=== PATIENT | male | born 1945 | race Caucasian/White ===

== ENCOUNTER 2021-05-20 07:20 | Day surgery (SDC) | payer MEDICARE, SELFPAY ==
[2021-05-13 14:14] VITALS: BMI 25.2
--- NOTE | 2021-05-16 16:22 | MHC.SHP ---
Pre-Procedural Eval Section A Date of Service: 05/16/21 The patient is an INPATIENT: No Changes since office visit: No Cold of Flu in the past 2 weeks, No New Medical Problems, No Changes in Medication and No Patient answered all questions The History & Physical has been completed within 30 days and I have reviewed it.: Yes Section B Chief Complaint: cataract Plan Diagnosis/Plan: Unchanged I have reviewed the history and physical and performed a pertinent physical examination on my patient. No changes have occurred unless specified.
--- NOTE | 2021-05-17 09:02 | P.CONAN_ITS ---
Documented by User: Jolanta Pisano NP 05/17/21 09:02 HPI - Anesthesia Eval Consult details Narrative: 76yo M for Right Cataract Extraction IOL Insertion PCP Cleared No previous cataract on record Eliquis for afib [facility] Past Medical History Medical History (Updated 05/13/21 @ 14:13 by Dianne Oakley, DAVID) Allergic rhinitis Atrial fibrillation BPH (benign prostatic hyperplasia) Cataract COVID-19 vaccine series completed Hearing loss Heart valve disorder History of kidney stones History of left inguinal hernia History of stroke Hypertension Personal history of COVID-19 Skin lesion of back Vitamin D insufficiency Surgical History Surgical History (Updated 05/13/21 @ 13:54 by Dianne Oakley, RN) Hx of hemorrhoidectomy Hx of tonsillectomy Hx of transurethral resection of prostate Hx of wisdom tooth extraction Social History Social History (Updated 05/13/21 @ 14:14 by Dianne Oakley, DAVID) Patient Tobacco Use Status: Never used Tobacco Use of substances other than those prescribed or required for medical reasons: No Are you DNR?: No Advance Directives: No Advance Directives Information Provided: Yes Advance Directives on File: No Meds Allergies Allergy/AdvReac Type Severity Reaction Status Date / Time No Known Allergies Allergy Verified 05/17/21 07:55 Home Medications Medication Instructions Recorded Confirmed Last Taken Type apixaban 5 mg tablet (Eliquis) 1 tab PO BID 05/13/21 05/13/21 05/19/21 History lisinopril 5 mg tablet 1 tab PO DAILY 05/13/21 05/13/21 Unknown History metoprolol tartrate 50 mg tablet 1 tab PO BID 05/13/21 05/13/21 05/20/21 History Exam Exam Date and Time: May 17, 2021 0902 Height,Weight and Vital Signs: Height 5 ft 10.5 in Weight 80.739 kg Assessment and Plan Assessment Anesthesia Assessment: Chart Reviewed Documented by User: Jessica Mccullough MD 05/20/21 10:17 [facility] Past Medical History Medical History (Updated 05/13/21 @ 14:13 by Dianne Oakley, DAVID) Allergic rhinitis Atrial fibrillation BPH (benign prostatic hyperplasia) Cataract COVID-19 vaccine series completed Hearing loss Heart valve disorder History of kidney stones History of left inguinal hernia History of stroke Hypertension Personal history of COVID-19 Skin lesion of back Vitamin D insufficiency Family History Family history of problems with anesthesia: No Surgical History Surgical History (Updated 05/13/21 @ 13:54 by Dianne Oakley, RN) Hx of hemorrhoidectomy Hx of tonsillectomy Hx of transurethral resection of prostate Hx of wisdom tooth extraction History of Problems with Anesthesia: No Social History Social History (Updated 05/13/21 @ 14:14 by Dianne Oakley, DAVID) Patient Tobacco Use Status: Never used Tobacco Use of substances other than those prescribed or required for medical reasons: No Are you DNR?: No Advance Directives: No Advance Directives Information Provided: Yes Advance Directives on File: No Meds Allergies Allergy/AdvReac Type Severity Reaction Status Date / Time No Known Allergies Allergy Verified 05/17/21 07:55 Home Medications Medication Instructions Recorded Confirmed Last Taken Type apixaban 5 mg tablet (Eliquis) 1 tab PO BID 05/13/21 05/13/21 05/19/21 History lisinopril 5 mg tablet 1 tab PO DAILY 05/13/21 05/13/21 Unknown History metoprolol tartrate 50 mg tablet 1 tab PO BID 05/13/21 05/13/21 05/20/21 History Exam Height,Weight and Vital Signs: Height 5 ft 10.5 in Weight 80.739 kg Vital Signs Temp Pulse Resp BP Pulse Ox 97.6 F 70 16 139/66 97 05/20/21 08:08 05/20/21 08:08 05/20/21 08:08 05/20/21 08:08 05/20/21 08:08 Airway Mallampati Class: III TM Dist: >3cm Neck ROM: Full Partial: Lower Loose/Missing/Broken Teeth: Yes (Some broken) Heart: Irregularly irregular Lungs: CTAB Assessment and Plan Assessment Anesthesia Assessment: Anesthesia Plan Discussed Final Anesthetic Review Family History of Problems with Anesthesia: No History of Problems with Anesthesia: No NPO: Yes ASA Class: III Final Preanesthetic Review: No Changes in Pt Med Stat, Meds/Allgs Chart Reviewed, Consent Obtained/Reviewed and Anes Risks/Benef Reviewed Patient Risk: Intermediate Procedure Risk: Low Assessment/Block/Sedation in SS: Assess/Block/Sedation-SS Anesthetic Plan Anesthetic Plan: MAC: Disposition: Standard PACU
--- NOTE | 2021-05-17 13:00 | MHC.SHP ---
Pre-Procedural Eval Section A Date of Service: 05/17/21 The patient is an INPATIENT: No Changes since office visit: No Cold of Flu in the past 2 weeks, No New Medical Problems, No Changes in Medication and No Patient answered all questions The History & Physical has been completed within 30 days and I have reviewed it.: Yes Section B Chief Complaint: cataract Allergies: Allergies Allergy/AdvReac Type Severity Reaction Status Date / Time No Known Allergies Allergy Verified 05/17/21 07:55 Plan Diagnosis/Plan: Unchanged I have reviewed the history and physical and performed a pertinent physical examination on my patient. No changes have occurred unless specified.
[2021-05-20 08:08] VITALS: BP 139/66; PULSE 70; RESP 16; TEMP 36.4; O2SAT 97
[2021-05-20] MEDS: Lactated Ringers 500 ML 50 ML IV (08:14)
[2021-05-20] MEDS: Tetracaine HCl/PF 0.5% Oph Sol 4 ML DROPS 1 DROP EYE-RIGHT (08:14)
[2021-05-20] MEDS: Tropicamide 1 % Ophth Sol 3 ML BTL 1 DROP EYE-RIGHT ×3 (08:15)
[2021-05-20] MEDS: Phenylephrine HCL 2.5% Oph SoL 2 ML BOTTLE 1 DROP EYE-RIGHT ×3 (08:15→08:16)
--- NOTE | 2021-05-20 09:47 | HO.PNOPHT ---
Ophthalmology Procedure Procedure Date of Service: 05/20/21 Ophthalmology Viscoelastic: Healon Duet Dual Pack Pro Ophthalmology Lenses: TECNIS [id number] (20.5) Procedure Notes: PREOPERATIVE DIAGNOSIS: Decreased visual acuity right eye secondary to cataract POSTOPERATIVE DIAGNOSIS: Same PROCEDURE: Right cataract extraction with intraocular lens insertion SURGEON: Uday Glez M.D. ANESTHESIA: Topical/MAC ESTIMATED BLOOD LOSS: None COMPLICATIONS: None After obtaining informed consent, the patient was brought to the operating room suite and placed in the supine position. After adequate sedation per anesthesia, topical drops of Tetracaine were given to the right eye. The eye was then prepped and draped in the usual sterile fashion. The operating room microscope was then positioned over the operative eye and a lid speculum placed. A paracentesis was created. Viscoelastic was then instilled into the anterior chamber. A three plane incision was then created temporally, utilizing a 2.85 mm keratome. Capsulotomy forceps were then utilized to create a circular tear capsulotomy. Hydrodissection and hydrodelineation were carried out until adequate mobilization of the nucleus occurred. Phacoemulsification was then utilized to remove the dense central nucleus followed by removal of the cortical material utilizing the automated aspiration irrigation unit. Viscoelastic was instilled into the posterior capsular bag followed by placement of a posterior chamber intraocular lens without difficulty. The residual Viscoelastic was then removed utilizing the automated IA machine. The wound was checked and found to be watertight. The patient tolerated the procedure well and the lid speculum was removed. Intracameral injection of Vigamox 0.1 mL followed by a subtenon injection of Kenalog-40 0.2 mL were administered. The patient will be seen in the a.m.
[2021-05-20 10:12] VITALS: BP 155/73; PULSE 80; RESP 16; TEMP 36.8; O2SAT 97
== END 2021-05-20 10:27 | disposition home or self-care (01) ==
PROVIDERS: PCP Internal Medicine; Visit Provider Ophthalmology
PROC: (CPT 66985; principal; 2021-05-20 09:50)
DX: H25.11 Age-related nuclear cataract, right eye (principal); H54.7 Unspecified visual loss; I10 Essential (primary) hypertension; I48.91 Unspecified atrial fibrillation; I38 Endocarditis, valve unspecified; I69.392 Facial weakness following cerebral infarction; Z86.16 Personal history of COVID-19; Z79.01 Long term (current) use of anticoagulants; Z79.899 Other long term (current) drug therapy
CPT/HCPCS: 66984; J2405; J3010; J3300; V2632